=== PATIENT | female | born 1945 | race Caucasian/White ===

== ENCOUNTER → 2017-07-15 | Outpatient (CLI) | payer MEDICARE | END | disposition home or self-care (01) | LOC: FMSRAD 13:38 | DX: R05 Cough (principal) | CPT/HCPCS: 71046 ==

== ENCOUNTER → 2019-06-07 | Day surgery (SDC) | payer MEDICARE ==
[~2019-06-07] MED LIST: ALBU2.5V8 IH; ATOR40TA59 PO; DULA0.75 SQ; FLUT1DIS5 IH; FURO40TA4 PO; GABA300C18 PO; IV RINGERS,LACTATED 1000ML 1,000 ML IV SCH; METF10007 PO; METO25TA4 PO; MONT10TA49 PO; OMEP40CA45 PO; PROPOFOL 20 ML IV ONE; RAMI2.5C2 PO; SOTA80TA48 PO
[2019-06-07 10:20] VITALS: BP 127/59
--- NOTE | 2019-06-08 12:06 | PATHOLOGY ---
[facility] Accession Number: [id number] . 01 Material submitted: . PART A: small bowel - SMALL BOWEL BX PART B: stomach - GASTRIC ANTRUM-BODY BX PART C: esophagus - DISTAL ESOPHAGUS BX. Modifiers: distal PART D: esophagus - MID ESOPHAGUS BX. Modifiers: mid PART E: colon - TRANSVERSE COLON POLYP. Modifiers: transverse PART F: colon - DESCENDING COLON POLYP X2. Modifiers: descending PART G: rectum - RECTAL POLYP X2 . 01 Clinical history: . Reflux . 02 Diagnosis: A. Small bowel biopsies: - No significant pathologic abnormalities. . B. Gastric biopsies, gastric antrum and gastric body: - Focally active chronic gastritis, mild to moderate, with focal Helicobacter organisms identified. . C. Esophageal biopsies, distal esophagus: - Segments of esophagogastric mucosa showing moderate chronic inflammation. . D. Esophageal biopsies, middle esophagus: - Segments of mildly hyperplastic squamous esophageal mucosa showing focal acute esophagitis. . E. Colon biopsies, transverse colon polyp: - Tubular adenoma. . F. Colon biopsies, descending colon polyp x2: - Tubular adenomas. . G. Colorectal biopsies, rectal polyp x2: - Hyperplastic polyps. . (JPM:dharmesh; 06/08/2019) [facility] 06/08/2019 1026 Local . 02 Comment: Sections of the small bowel biopsy reveal segments of duodenal mucosa. Where best oriented, the mucosal villi show no sprue-like changes or significant inflammatory changes. . Sections of the gastric biopsy show congestion and focally active mild to moderate chronic inflammation. A properly-controlled immunoperoxidase stain focally reveals a few Helicobacter organisms. . Sections of the distal esophageal biopsy reveal segments of esophagogastric mucosa showing moderate chronic inflammation. There is no evidence of Kaufman's change, dysplasia, or malignancy. . Sections of the middle esophageal biopsy reveal segments of mildly hyperplastic squamous esophageal mucosa showing focal clustered intraepithelial neutrophils (acute esophagitis). There are no obvious yeast/fungal organisms or viral inclusions. . Sections of the transverse colon biopsy reveal a tubular adenoma showing no high grade dysplasia or evidence of malignancy. . Sections of the descending colon biopsy reveal tubular adenomas showing no high grade dysplasia or evidence of malignancy. . Sections of the rectal biopsy reveal hyperplastic polyps. . Special stain: Immunoperoxidase stain for Helicobacter on B1 . (JPM:mml; 06/08/2019) . . . 02 Electronically signed: . Arthur Spivey MD, Pathologist NPI- [id number] . 01 Gross description: . A. The specimen is received in formalin, labeled "Amalia Steve, small bowel biopsy". Received are two segments of pale villarreal soft tissue ranging in size from 0.3 to 0.4 cm in maximum dimensions. The specimen is submitted entirely in cassette A1. . B. The specimen is received in formalin, labeled "Amalia Steve, gastric antrum/body biopsy". Received are three segments of pale villarreal soft tissue ranging in size from 0.4 to 0.5 cm in maximum dimensions. The specimen is submitted entirely in cassette B1. . C. The specimen is received in formalin, labeled "Amalia Steve, distal esophagus biopsy". Received are two segments of pale villarreal soft tissue ranging in size from 0.4 to 0.5 cm in maximum dimensions. The specimen is submitted entirely in cassette C1. . D. The specimen is received in formalin, labeled "Amalia Steve, mid esophagus biopsy". Received are two segments of pale villarreal soft tissue ranging in size from 0.3 to 0.4 cm in maximum dimensions. The specimen is submitted entirely in cassette D1. . E. The specimen is received in formalin, labeled "Amalia Steve, transverse colon polyp". Received are six segments of pale villarreal soft tissue ranging in size from 0.2 to 0.4 cm in maximum dimensions. The specimen is submitted entirely in cassette E1. . F. The specimen is received in formalin, labeled "Amalia Steve, descending colon polyp x2". Received are two segments of pale villarreal soft tissue ranging in size from 0.4 to 0.5 cm in maximum dimensions. The specimen is submitted entirely in cassette F1. . G. The specimen is received in formalin, labeled "Amalia Steve, rectal polyp x2". Received are three segments of pale villarreal soft tissue ranging in size from 0.3 to 0.4 cm in maximum dimensions. The specimen is submitted entirely in cassette G1. (CAA; 06/07/2019) QAC/QAC 06/07/2019 1710 Local . 02 Pathologist provided ICD-10: K29.50, K20.8, D12.3, K62.1, D12.4 . 02 CPT . 226427, 122658, 163583, 620884, 318500, 571050, [id number], [id number] Specimen Comment: A courtesy copy of this report has been sent to [phone], [phone] Specimen Comment: [id number] Specimen Comment: Report sent to / DR NORTON Specimen Comment: A duplicate report has been generated due to demographic updates. Performed at: 01 [facility] [address] [id number] MD Eduardo Ozuna MD Phone: [phone] Performed at: 02 [facility] [address], [place] [id number] MD Arthur Spivey MD Phone: [phone]
== END ==
LOC: ENDOS 07:52
PROVIDERS: ATTEND Internal Medicine Gastroenterology
DX: Z12.11 Encounter for screening for malignant neoplasm of colon (principal); D12.3 Benign neoplasm of transverse colon; D12.4 Benign neoplasm of descending colon; K21.0 Gastro-esophageal reflux disease with esophagitis; K29.50 Unspecified chronic gastritis without bleeding; K62.1 Rectal polyp; K57.30 Diverticulosis of large intestine without perforation or abscess without bleeding; K21.9 Gastro-esophageal reflux disease without esophagitis; K64.0 First degree hemorrhoids; F41.9 Anxiety disorder, unspecified; J43.9 Emphysema, unspecified; E11.9 Type 2 diabetes mellitus without complications; G47.30 Sleep apnea, unspecified; F15.90 Other stimulant use, unspecified, uncomplicated; F17.210 Nicotine dependence, cigarettes, uncomplicated; Z88.0 Allergy status to penicillin; Z88.8 Allergy status to other drugs, medicaments and biological substances; Z91.041 Radiographic dye allergy status; Z86.010 Personal history of colon polyps; Z79.84 Long term (current) use of oral hypoglycemic drugs; Z85.828 Personal history of other malignant neoplasm of skin; Z95.0 Presence of cardiac pacemaker; Z98.51 Tubal ligation status
CPT/HCPCS: 43239; 43450; 45380; 82962; 88305; 88342; J2704